=== PATIENT | male | born 1955 | race Hispanic/Latino ===

== ENCOUNTER 2016-08-07 09:18 | Emergency (ER) | payer OTHER ==
[2016-08-07 09:37] VITALS: BP 156/102
--- NOTE | 2016-08-07 09:49 | Emergency Department Report ---
Entered by HERMELINDA BAKER, acting as scribe for AMANDA MRATINEZ PA. Chief Complaint: Anxiety Stated Complaint: ANXIETY Time Seen by Provider: 08/07/16 09:40 - HPI History of Present Illness: Patient present to the ED co/ anxiety for 3 days, worsening today. Pt states he hasn't slept in 3 days. Recently stopped tobacco and illicit drug use. - ROS Review of Systems: Patient seen by provider in triage area. Patient's urine taken to lab for UA. - Exam Vital Signs: Vital Signs 08/07/16 09:33 Temperature 98.5 F Pulse Rate 70 Respiratory 22 Rate Blood Pressure 156/102 O2 Sat by Pulse 98 Oximetry Physical Exam: General: well nourished, well developed, nontoxic in appearance, anxious with mild anxiety Cardiovascular: S1/S2 regular rate and rhythm. No murmur. Extremities: Positive trembling MSE screening note: Focused history and physical exam performed. Due to findings the following was ordered: ED Medical Decision Making - Medical Decision Making Medical decision making: Patient seen by provider in triage area. Appropriate protocol activated and patient to main ED to be seen by provider ED Disposition for MSE Condition: Stable This documentation as recorded by the scribe,HERMELINDA BAKER,accurately reflects the service I personally performed and the decisions made by me,AMANDA MARTINEZ PA.
[2016-08-07 10:13] LABS: Anion Gap 17 mmol/L; BUN/Creatinine Ratio 13.33; Blood Urea Nitrogen 12 mg/dL (9-20); Calcium 9.4 mg/dL (8.4-10.2); Carbon Dioxide 25 mmol/L (22-30); Chloride 96.3 mmol/L (98-107); Glucose 108 mg/dL (75-100); Potassium 4.4 mmol/L (3.6-5.0); Sodium 134 mmol/L (137-145)
[2016-08-07 10:19] LABS: Urine Drugs of Abuse Note Disclamer
[2016-08-07 10:36] LABS: Basophils % (Auto) 0.6 % (0.0-1.8); Hematocrit 47.1 % (35.5-45.6); Hemoglobin 16.1 gm/dl (11.8-15.2); Mean Corpuscular HGB Conc 34 % (32-34); Mean Corpuscular Hemoglobin 29 pg (28-32); Mean Corpuscular Volume 84 fl (84-94); Platelet Count 216 K/mm3 (140-440); Red Blood Count 5.58 M/mm3 (3.65-5.03); Red Cell Distribution Width 14.5 % (13.2-15.2); White Blood Count 8.9 K/mm3 (4.5-11.0)
[2016-08-07 10:45] LABS: Bilirubin,Urine NEG (Negative); Blood,Urine NEG (Negative); Ketones,Urine NEG (Negative); Leukocyte Esterase,Urine NEG (Negative); Mucus,Urine FEW /HPF; Nitrite,Urine NEG (Negative); Protein,Urine <15 mg/dL mg/dL (Negative); Urobilinogen,Urine < 2.0 mg/dL (<2.0)
[2016-08-07] MEDS ORDERED: ATIVAN PO ONE ×2 (12:12→13:55)
--- NOTE | 2016-08-07 12:19 | Emergency Department Report ---
ED Anxiety HPI - General Chief Complaint: Anxiety Stated Complaint: ANXIETY Time Seen by Provider: 08/07/16 09:44 Source: patient, EMS Mode of arrival: Ambulatory Limitations: No Limitations - History of Present Illness Initial Comments: 15-year-old male presents to the emergency department complaining of anxiety. Patient states he is visiting the area from [place] for an antique show. He reports his girlfriend broke up with him during the antique show. He reports he has not eaten or left for 3 days. He reports feeling very jittery. He denies visual or auditory hallucinations. He denies suicidal or homicidal thoughts. Patient states that he normally takes Ativan and his anxiety gets bad , but he does not have any. There are no other complaints. MD Complaint: anxiety -: Gradual, days(s) (3) Place: home Previous History of Same: Yes Severity: moderate Quality: constant Provoking factors: emotional stress Improves With: nothing Worsens With: nothing Associated symptoms: denies other symptoms - Related Data Home Medications: Home Medications Medication Instructions Recorded Confirmed Last Taken Atenolol [Tenormin] 25 mg PO DAILY 08/07/16 08/07/16 08/06/16 Citalopram [celeXA] 20 mg PO QDAY 08/07/16 08/07/16 08/06/16 Previous Rx's Medication Instructions Recorded Last Taken Type ALPRAZolam [Xanax TAB] 2 mg PO TID PRN #30 tablet 08/07/16 Unknown Rx Allergies/Adverse Reactions: Allergies Allergy/AdvReac Type Severity Reaction Status Date / Time No Known Allergies Allergy Unverified 08/07/16 09:32 ED Review of Systems ROS: Stated complaint: ANXIETY Other details as noted in HPI Comment: All other systems reviewed and negative Psychiatric: anxiety. denies: auditory hallucinations, visual hallucinations, homicidal thoughts, suicidal thoughts ED Past Medical Hx - Past Medical History Previous Medical History?: Yes Hx Hypertension: Yes Hx Psychiatric Treatment: Yes (anxiety, depression) - Surgical History Past Surgical History?: No - Family History Family history: no significant - Social History Smoking Status: Former Smoker Substance Use Type: Alcohol, Prescribed - Medications Home Medications: Home Medications Medication Instructions Recorded Confirmed Last Taken Type ALPRAZolam [Xanax TAB] 2 mg PO TID PRN #30 tablet 08/07/16 Unknown Rx Atenolol [Tenormin] 25 mg PO DAILY 08/07/16 08/07/16 08/06/16 History Citalopram [celeXA] 20 mg PO QDAY 08/07/16 08/07/16 08/06/16 History ED Physical Exam - General Limitations: No Limitations General appearance: alert, anxious - Head Head exam: Present: atraumatic, normocephalic - Eye Eye exam: Present: normal appearance, PERRL, EOMI - ENT ENT exam: Present: normal exam, normal orophraynx, mucous membranes moist - Neck Neck exam: Present: normal inspection, full ROM. Absent: tenderness - Respiratory Respiratory exam: Present: normal lung sounds bilaterally. Absent: respiratory distress - Cardiovascular Cardiovascular Exam: Present: regular rate, normal rhythm, normal heart sounds - GI/Abdominal GI/Abdominal exam: Present: soft, normal bowel sounds. Absent: distended, tenderness - Extremities Exam Extremities exam: Present: normal inspection, full ROM. Absent: tenderness - Back Exam Back exam: Present: normal inspection, full ROM. Absent: tenderness - Neurological Exam Neurological exam: Present: alert, oriented X3. Absent: motor sensory deficit - Skin Skin exam: Present: warm, dry, intact ED Course Vital Signs 08/07/16 09:33 Temperature 98.5 F Pulse Rate 70 Respiratory 22 Rate Blood Pressure 156/102 O2 Sat by Pulse 98 Oximetry ED Medical Decision Making - Lab Data Result diagrams: 08/07/16 09:39 08/07/16 09:39 - Medical Decision Making Patient does not meet criteria for inpatient treatment. Form 1013 will not be signed. Patient has been medically cleared. Giving an oral dose of Ativan. Mental health is to evaluate the patient. 1320-vision has been evaluated by mental health and cleared for discharge. Patient continues to deny suicidal ideations. Patient will be discharged home at this time with a prescription for oral Xanax to follow up with his primary care physician in [place]. - Differential Diagnosis anxiety reaction Critical care attestation.: If time is entered above; I have spent that time in minutes in the direct care of this critically ill patient, excluding procedure time. ED Disposition Clinical Impression: Anxiety Disposition: DISCHARGED TO HOME OR SELFCARE Is pt being admited?: No Condition: Stable Instructions: Anxiety (ED) Prescriptions: ALPRAZolam [Xanax TAB] 2 mg PO TID PRN #30 tablet PRN Reason: Anxiety Referrals: PRIMARY CARE, [Primary Care Provider] - 3-5 Days Time of Disposition: 13:21
== END 2016-08-07 14:50 | disposition home or self-care (01) ==
LOC: ED 09:18
DX: F41.9 Anxiety disorder, unspecified (principal); I10 Essential (primary) hypertension; F32.9 Major depressive disorder, single episode, unspecified; Z87.891 Personal history of nicotine dependence
CPT/HCPCS: 36415; 80048; 80307; 81001; 85025; 99284; G0480; 80320